=== PATIENT | male | born 1960 | race Caucasian/White ===

== ENCOUNTER 2016-10-26 11:00 | Outpatient (CLI) | payer BC ==
--- OUTSIDE RECORDS SUMMARY | 2016-10-25 06:01 | XMS REPORT | Continuity of Care Document ---
Author Author [facility] Organization [facility] Address Unknown Phone Unavailable Allergies Active Description Code Type Severity Reaction Onset Reported/Identified Relationship to Patient Clinical Status Yes No Known Drug Allergies [id number] Drug Allergy Unknown N/ A 04/15/2014 Medications Problems Date Dx Coded Attending Type Code Diagnosis Diagnosed By 04/18/2014 ROMELIA SAMANO MD Ot 272.0 PURE HYPERCHOLESTEROLEM 04/18/2014 ROMELIA SAMANO MD Ot 272.4 HYPERLIPIDEMIA NEC/NOS 04/18/2014 ROMELIA SAMANO MD Ot 401.9 HYPERTENSION NOS 04/18/2014 ROMELIA SAMANO MD Ot 410.71 AC MYOCARDIAL INFARCT,SUBENDO INFARCT,IN 04/18/2014 ROMELIA SAMANO MD Ot 414.01 CORONARY ATHEROSCLEROSIS OF [place] CORON 04/18/2014 ROMELIA SAMANO MD Ot 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 04/18/2014 ROMELIA SAMANO MD Ot V17.3 FAM HX-ISCHEM HEART DIS 01/07/2016 JOVANI WILBURN Ot E78.2 MIXED HYPERLIPIDEMIA 01/07/2016 JOVANI WILBURN Ot I10 ESSENTIAL (PRIMARY) HYPERTENSION 01/07/2016 JOVANI WILBURN Ot I25.10 ATHSCL HEART DISEASE OF [place] CORONARY 03/04/2016 JOVANI WILBURN Ot E78.2 MIXED HYPERLIPIDEMIA 03/04/2016 JOVANI WILBURN Ot I10 ESSENTIAL (PRIMARY) HYPERTENSION 03/04/2016 JOVANI WILBURN Ot I21.3 ST ELEVATION (STEMI) MYOCARDIAL INFARCTI 03/04/2016 JOVANI WILBURN Ot I25.10 ATHSCL HEART DISEASE OF [place] CORONARY 09/17/2016 JOVANI WILBURN Ot E78.2 MIXED HYPERLIPIDEMIA 09/17/2016 JOVANI WILBURN Ot I10 ESSENTIAL (PRIMARY) HYPERTENSION 09/17/2016 JOVANI WILBURN Ot I21.3 ST ELEVATION (STEMI) MYOCARDIAL INFARCTI 09/17/2016 JOVANI WILBURN Ot I25.10 ATHSCL HEART DISEASE OF [place] CORONARY 09/17/2016 JOVANI WILBURN Ot E78.2 MIXED HYPERLIPIDEMIA 09/17/2016 JOVANI WILBURN Ot I10 ESSENTIAL (PRIMARY) HYPERTENSION 09/17/2016 JOVANI WILBURN Ot I25.10 ATHSCL HEART DISEASE OF [place] CORONARY Procedures Code Description Performed By Performed On 37.22 LEFT HEART CARDIAC CATH 04/15/2014 38.91 ARTERIAL CATHETERIZATION 04/15/2014 88.53 LT HEART ANGIOCARDIOGRAM 04/15/2014 88.56 CORONAR ARTERIOGR-2 CATH 04/15/2014 Results Encounters ACCT No. Visit Date/Time Discharge Status Pt. Type Provider Facility Loc./Unit Complaint [id number] 04/15/2014 14:14:00 2013 17:51:00 DIS Inpatient JAZMYNE WESTFALL, ROMELIA Anand [facility] CSD IRR LAB RESULTS [id number] 02/16/2016 07:45:00 ACT Outpatient JOVANI REED [facility] CARD CA,HTN,HLP [id number] 12/22/2015 11:39:00 ACT Outpatient JOVANI REED [facility] CARD CAD,HTN,HLP
[~2016-10-26] VITALS: Ht 172.7 cm; Wt 88.9 kg
[~2016-10-26 11:00] MED LIST: ASP81CT PO; ATOR80TA PO; CARV3.12T PO; HYDR25TA4 PO; ISM30TCR PO; LISI1TAB10 PO; LISI20TA PO; Lisinopril PO; MULT-974 PO; OMEG-11 PO; SIMV40TA4 PO
[2016-10-26] MEDS ORDERED: AMLO5TAB2 PO (11:20)
[2016-10-26] MEDS ORDERED: LISI-552 PO (11:20)
[2016-10-26] MEDS ORDERED: CARV6.25 PO (11:20)
[2016-10-26] MEDS ORDERED: ATOR40TA70 PO (11:20)
== END 2016-10-26 13:13 ==
LOC: PREOP 11:00
PROVIDERS: ATTEND Surgery Pediatric Surgery
DX: Z01.818 Encounter for other preprocedural examination (principal); Z12.11 Encounter for screening for malignant neoplasm of colon

== ENCOUNTER 2016-10-27 08:58 | Day surgery (SDC) | payer BC ==
[~2016-10-27] VITALS: Ht 172.7 cm; Wt 88.9 kg
[~2016-10-27 08:58] MED LIST changes: +AMLO5TAB2 PO; +ATOR40TA70 PO; +CARV6.25 PO; +LISI-552 PO
[2016-10-27] MEDS ORDERED: NS IV 1000 ML 1,000 ML ONE (09:09)
[2016-10-27] MEDS ORDERED: LIDOCAINE JELLY 2% (XYLOCAINE) 5 ML TUBE MM PRN (09:15)
[2016-10-27] MEDS ORDERED: NALOXONE 0.4 MG/ML 1 ML (NARCAN) VIAL IVP PRN (09:15)
[2016-10-27] MEDS ORDERED: FLUMAZENIL (ROMAZICON) 0.1 MG/ML 5 ML VIAL INJ PRN (09:15)
[2016-10-27 09:28] VITALS: BP 167/98
[2016-10-27] MEDS ORDERED: NS IV 500 ML 500 ML IV PRN (09:30)
[2016-10-27] MEDS ORDERED: NS IV 1000 ML 1,000 ML IV SCH (09:30)
[2016-10-27] MEDS ORDERED: LIDOCAINE JELLY 2% (XYLOCAINE) 5 ML TUBE ONE (10:12)
[2016-10-27] MEDS ORDERED: MIDAZOLAM 2 MG/2 ML (VERSED) VIAL ONE ×5 (10:13)
[2016-10-27] MEDS ORDERED: fentaNYL INJECTION 100 MCG/2 ML AMP ONE ×2 (10:13)
--- NOTE | 2016-10-27 10:13 | Conscious Sedation/ASA ---
Conscious Sedation Pre-Proced Time Reviewed: 10:00 ASA Class: 2 Airway Mallampati Classification: (chitina appropriate class) I. II. III, IV Lungs Heart ASA score ASA 1: a normal healthy patient ASA 2: a patient with a mild systemic disease (mid diabetes, controlled hypertension, obesity ASA 3: a patient with a severe systemic disease that limits activity (angina , COPD, prior Myocardial infarction) ASA 4: a patient with an incapacitating disease that is a constant threat to life (CHF, renal failure) ASA 5: a moribund patient not expected to survive 24 hrs. (ruptured aneurysm) ASA 6: a declared brain patient whose organs are being harvested. For emergent operations, add the letter E after the classification Grade 2 Sedation Plan: Analgesia, Amnesia, Plan communicated to team members, Discussed options with patient/fam, Discussed risks with patient/fam Note The patient is an appropriate candidate to undergo the planned procedure, sedation, and anesthesia. The patient immediately re-assessed prior to indication. ANTONELLA PALACIOS MD Oct 27, 2016 10:13 am
--- NOTE | 2016-10-27 10:13 | Progress Note-Pre Operative ---
Pre-Operative Progress Note H&P Reviewed The H&P was reviewed, patient examined and no changes noted. Date H&P Reviewed: Oct 27, 2016 Time H&P Reviewed: 10:00 Pre-Operative Diagnosis: screening colonoscopy ANTONELLA PALACIOS MD Oct 27, 2016 10:13 am
[2016-10-27] MEDS ORDERED: morphine INJ 10 MG/ML 1ML (SYR OR VIAL) IV PRN (10:15)
[2016-10-27] MEDS: MIDAZOLAM 2 MG/2 ML (VERSED) VIAL IVP PRN ×5 (10:15→10:30)
[2016-10-27] MEDS ORDERED: HYDROcodone/APAP 5 MG/325 MG (LORTAB) TAB PO PRN (10:15)
[2016-10-27] MEDS ORDERED: ONDANSETRON 4 MG/2 ML (SDV) Z0FRAN IV PRN (10:15)
[2016-10-27] MEDS ORDERED: ACETAMINOPHEN 325 MG TABLET/CAPLET (TYLENOL) PO PRN (10:15)
[2016-10-27] MEDS: fentaNYL INJECTION 100 MCG/2 ML AMP IVP PRN ×4 (10:16→10:25)
--- NOTE | 2016-10-27 10:50 | Progress Note-Post Operative ---
Post-Operative Progess Note Pre-Operative Diagnosis screening colonoscopy Post-Operative Diagnosis chronic stage 1 ext and int hemorrhoids Post-Op Procedure Note Date of Procedure: Oct 27, 2016 Name of Procedure: colonoscopy Anesthesia Type CS Estimated blood loss (mL): ANTONELLA Calhoun MD Oct 27, 2016 10:49 am
--- NOTE | 2016-10-27 10:50 | Discharge Inst-Surgical ---
D/C Lap Instructions-PHILIP Follow Up 10 years Activity as tolerated High Fiber Diet 25g or more per day Avoid Alcohol, Caffeine, Spicy [place] and Acid foods. Drink 64 fluid oz or more of fluids per day. Symptoms to Report: Fever over 101 degree F, Nausea/Vomiting If any problems/questions: Contact your physician or go to Emergency Room ANTONELLA PALACIOS MD Oct 27, 2016 10:50 am
[2016-10-27 11:10] VITALS: BP 122/82
[2016-10-27 11:55] VITALS: BP 148/89
[2016-10-27 12:04] VITALS: BP 148/89
--- NOTE | 2016-10-27 12:44 | OPERATIVE REPORT ---
PROCEDURE PHYSICIAN: ANTONELLA WEINBERG DATE OF PROCEDURE: 10/27/2016 ATTENDING PRIMARY CARE PHYSICIAN: Dr. Lim. PREOPERATIVE DIAGNOSIS: Screening colonoscopy. POSTOPERATIVE DIAGNOSIS: Mild chronic stage I external and internal hemorrhoids. PROCEDURE: Colonoscopy. SURGEON: Dr. Weinberg. ANESTHESIA: Conscious sedation. ESTIMATED BLOOD LOSS: Minimal. FINDINGS: Mild chronic stage I external and internal hemorrhoids. The remainder of the rectum and colon were normal. There were no polyps identified. DISPOSITION: The patient tolerated the procedure well. Mr. Rush Ang is a 60-year-old male in need of a screening colonoscopy. He states that he has occasional episodes of constipation, however not severe. He does not report any issues with red blood per rectum or any dark tarry stools. He also does not report any family history of colon cancer. He has not had a colonoscopy up to this point in his life. PROCEDURE: The patient was brought to the endoscopy suite, laid in the left lateral decubitus position with the head slightly elevated. After adequate IV pain and sedative medications and conscious sedation anesthesia, a digital rectal examination was performed. Mild chronic stage I external and internal hemorrhoids were identified which were not actively edematous or inflamed and no bleeding. Normal sphincter tone was felt and there were no palpable masses. Prostate gland was palpable and appeared normal. The endoscope was then intubated into the anus and the rectum gently insufflated. The endoscope was then advanced through the valves of Reyes of the rectum with no polyps or any neoplasms identified. The endoscope was then advanced through the sigmoid colon where no diverticulosis identified. We then proceeded through the remainder of the descending, transverse, and ascending colon to the cecum. These segments were normal. There were no polyps or any neoplasms identified throughout the colon or rectum. The endoscope was then slowly withdrawn while taking a second look and suctioning of residual air with no additional findings. The patient tolerated the procedure well. We will have him continue with medical management with a high fiber diet with at least 30 grams of fiber per day to promote soft stools on a daily basis. He does not need another colonoscopy for another 10 years. Job ID: [id number] Dictated Date: 10/27/2016 10:46:27 Planer Off Bearer Date: 10/27/2016 12:39:58 / clifford
--- OUTSIDE RECORDS SUMMARY | 2016-10-31 04:43 | XMS REPORT | Continuity of Care Document ---
Author Author [facility] Organization [facility] Address Unknown Phone Unavailable Allergies Active Description Code Type Severity Reaction Onset Reported/Identified Relationship to Patient Clinical Status Yes No Known Drug Allergies [id number] Drug Allergy Unknown N/ A 10/26/2016 Medications Problems Date Dx Coded Attending Type Code Diagnosis Diagnosed By 04/18/2014 ROMELIA SAMANO MD Ot 272.0 PURE HYPERCHOLESTEROLEM 04/18/2014 ROMELIA SAMANO MD Ot 272.4 HYPERLIPIDEMIA NEC/NOS 04/18/2014 ROMELIA SAMANO MD Ot 401.9 HYPERTENSION NOS 04/18/2014 ROMELIA SAMANO MD Ot 410.71 AC MYOCARDIAL INFARCT,SUBENDO INFARCT,IN 04/18/2014 ROMELIA SAMANO MD Ot 414.01 CORONARY ATHEROSCLEROSIS OF [place] CORON 04/18/2014 ROMELIA SAMANO MD, Ot 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 04/18/2014 ROMELIA SAMANO MD Ot V17.3 FAM HX-ISCHEM HEART DIS 01/07/2016 JOVANI WILBURN Ot E78.2 MIXED HYPERLIPIDEMIA 01/07/2016 JOVANI WILBURN Ot I10 ESSENTIAL (PRIMARY) HYPERTENSION 01/07/2016 JOVANI WILBURN Ot I25.10 ATHSCL HEART DISEASE OF [place] CORONARY 03/04/2016 JOVANI WILBURN Ot E78.2 MIXED HYPERLIPIDEMIA 03/04/2016 JOVANI WILBURN Ot I10 ESSENTIAL (PRIMARY) HYPERTENSION 03/04/2016 JOVANI WILBURN Ot I21.3 ST ELEVATION (STEMI) MYOCARDIAL INFARCTI 03/04/2016 JOVANI WILBURN Ot I25.10 ATHSCL HEART DISEASE OF [place] CORONARY 09/17/2016 JOVANI WILBURN Ot E78.2 MIXED HYPERLIPIDEMIA 09/17/2016 JOVANI WILBURN Ot I10 ESSENTIAL (PRIMARY) HYPERTENSION 09/17/2016 JOVANI WILBURN Ot I21.3 ST ELEVATION (STEMI) MYOCARDIAL INFARCTI 09/17/2016 JOVANI WILBURN Ot I25.10 ATHSCL HEART DISEASE OF [place] CORONARY 09/17/2016 JOVANI WILBURN Ot E78.2 MIXED HYPERLIPIDEMIA 09/17/2016 JOVANI WILBURN Ot I10 ESSENTIAL (PRIMARY) HYPERTENSION 09/17/2016 JOVANI WILBURN Ot I25.10 ATHSCL HEART DISEASE OF [place] CORONARY 10/26/2016 ANTONELLA PALACIOS MD Ot Z01.818 ENCOUNTER FOR OTHER PREPROCEDURAL EXAMIN 10/26/2016 ANTONELLA PALACIOS MD Ot Z12.11 ENCOUNTER FOR SCREENING FOR MALIGNANT NE 10/26/2016 ANTONELLA PALACIOS MD Ot Z01.818 ENCOUNTER FOR OTHER PREPROCEDURAL EXAMIN 10/26/2016 ANTONELLA PALACIOS MD, Ot Z12.11 ENCOUNTER FOR SCREENING FOR MALIGNANT NE 10/26/2016 ANTONELLA PALACIOS MD Ot Z01.818 ENCOUNTER FOR OTHER PREPROCEDURAL EXAMIN 10/26/2016 ANTONELLA PALACIOS MD Ot Z12.11 ENCOUNTER FOR SCREENING FOR MALIGNANT NE Procedures Code Description Performed By Performed On 37.22 LEFT HEART CARDIAC CATH 04/15/2014 38.91 ARTERIAL CATHETERIZATION 04/15/2014 88.53 LT HEART ANGIOCARDIOGRAM 04/15/2014 88.56 CORONAR ARTERIOGR-2 CATH 04/15/2014 Results Encounters ACCT No. Visit Date/Time Discharge Status Pt. Type Provider Facility Loc./Unit Complaint [id number] 10/26/2016 11:00:00 2016 13:13:00 DIS Outpatient ANTONELLA PALACIOS MD [facility] PREOP SCREENING [id number] 04/15/2014 14:14:00 2013 17:51:00 DIS Inpatient ROMELIA SAMANO MD [facility] CSD IRR LAB RESULTS [id number] 10/27/2016 10:14:00 Document Registration [id number] 02/16/2016 07:45:00 ACT Outpatient JOVANI REED [facility] CARD CA,HTN,HLP [id number] 12/22/2015 11:39:00 ACT Outpatient JOVANI REED [facility] CARD CAD,HTN,HLP
== END 2016-10-27 12:05 | disposition home or self-care (01) ==
LOC: DELPENDDIS → ENDO 08:58
PROVIDERS: ATTEND Surgery Pediatric Surgery
DX: Z12.11 Encounter for screening for malignant neoplasm of colon (principal); K64.0 First degree hemorrhoids

== ENCOUNTER → 2017-03-02 | Outpatient (CLI) | payer BC | LOC: CARD 14:34 | PROVIDERS: ATTEND Physician Assistant | DX: I25.10 Atherosclerotic heart disease of native coronary artery without angina pectoris (principal); I10 Essential (primary) hypertension; E78.2 Mixed hyperlipidemia; Z82.49 Family history of ischemic heart disease and other diseases of the circulatory system | CPT/HCPCS: 93306 ==

== ENCOUNTER 2017-03-07 23:17 | Emergency (ER) | payer BC ==
[~2017-03-07] VITALS: Ht 172.7 cm; Wt 87.5 kg
[2017-03-07 23:59] LABS: BASOPHILS % (AUTO) 0 % (0-10); EOSINOPHILS # (AUTO) 0.1 10^3/uL (0.0-0.3); EOSINOPHILS % (AUTO) 0 % (0-10); LYMPHOCYTES # (AUTO) 1.1 X 10^3 (1.0-4.0); LYMPHOCYTES % (AUTO) 9 % (12-44); MEAN CORPUSCULAR HEMOGLOBIN 30 PG (25-34); MEAN CORPUSCULAR HGB CONC 34 G/DL (32-36); MEAN CORPUSCULAR VOLUME 88 FL (80-99); MEAN PLATELET VOLUME 10.4 FL (7.4-10.4); MONOCYTES # (AUTO) 0.4 X 10^3 (0.0-1.0); MONOCYTES % (AUTO) 3 % (0-12); NEUTROPHILS # (AUTO) 10.5 X 10^3 (1.8-7.8); NEUTROPHILS % (AUTO) 87 % (42-75); PLATELET COUNT 176 10^3/uL (130-400); RED BLOOD COUNT 5.28 10^6/uL (4.35-5.85); RED CELL DISTRIBUTION WIDTH 13.2 % (10.0-14.5); WHITE BLOOD COUNT 12.1 10^3/uL (4.3-11.0)
[2017-03-07] MEDS ORDERED: NS IV 1000 ML 1,000 ML IV ONE (23:59)
[2017-03-08] LABS: BILIRUBIN,URINE NEGATIVE (NEGATIVE); KETONES,URINE NEGATIVE (NEGATIVE); LEUKOCYTE ESTERASE ,URINE NEGATIVE (NEGATIVE); NITRITE,URINE NEGATIVE (NEGATIVE); PH,URINE 8 (5-9); PROTEIN,URINE NEGATIVE (NEGATIVE); UROBILINOGEN,URINE NORMAL (NORMAL)
[2017-03-08] MEDS ORDERED: ONDANSETRON 4 MG/2 ML (SDV) Z0FRAN IVP ONE
[2017-03-08] MEDS ORDERED: fentaNYL INJECTION 100 MCG/2 ML AMP IVP ONE
[2017-03-08 00:15] LABS: SQUAMOUS EPITHELIAL CELL,UR RARE /HPF
[2017-03-08 00:20] LABS: ALANINE AMINOTRANSFERASE 31 U/L (0-55); ALBUMIN 4.7 GM/DL (3.2-4.5); ANION GAP 9 MMOL/L (5-14); ASPARTATE AMINO TRANSFERASE 30 U/L (5-34); BILIRUBIN,TOTAL 1.8 MG/DL (0.1-1.0); BLOOD UREA NITROGEN 21 MG/DL (7-18); BUN/CREATININE RATIO 18; CALCIUM 9.6 MG/DL (8.5-10.1); CARBON DIOXIDE 28 MMOL/L (21-32); CHLORIDE 106 MMOL/L (98-107); CREATININE SERUM 1.18 MG/DL (0.60-1.30); GFR ESTIMATED > 60; GLUCOSE 141 MG/DL (70-105); LIPASE 28 U/L (8-78); POTASSIUM 3.9 MMOL/L (3.6-5.0); SODIUM 143 MMOL/L (135-145); TOTAL PROTEIN 7.7 GM/DL (6.4-8.2)
[2017-03-08] MEDS ORDERED: KETOROLAC 30 MG/ML VIAL IVP ONE (00:45)
[2017-03-08] MEDS ORDERED: RX-ONDANSETRON 4 MG ODT (ZOFRAN) PPK #4 SL STA (01:57)
--- NOTE | 2017-03-08 01:59 | ED Abdominal Pain ---
General Chief Complaint: Back Problems Stated Complaint: BACK PAIN,ABD PAIN,VOMITING Nursing Triage Note: C/O LOWER BACK PAIN RADIATING TO ABDOMEN, N/V X2HRS Sepsis Screen: No Definite Risk Source of Information: Patient Exam Limitations: No Limitations History of Present Illness Time Seen By Provider: 23:30 Initial Comments This 56-year-old gentleman presents to the emergency room with complaints of right flank and lower back pain that is radiating down to the right lower quadrant. Pain started around 20:30. He has remote history of a renal stone. He has associated vomiting. He denies any constipation or diarrhea. He is afebrile. Pain is waxing and waning. He denies any hematuria or dysuria. Pain is rated as 8/10. Allergies and Home Medications Allergies Coded Allergies: No Known Drug Allergies (Unverified , 10/26/16) Home Medications Amlodipine Besylate 5 Mg Tablet, 5 MG PO DAILY, (Reported) Aspirin 81 Mg Chew, 81 MG PO DAILY, #30 Prescribed by: AMILCAR COBURN on 04/18/14 1625 Atorvastatin Calcium 40 Mg Tablet, 40 MG PO HS, (Reported) Carvedilol 6.25 Mg Tablet, 6.25 MG PO BID, (Reported) Ciprofloxacin HCl 500 Mg Tablet, 500 MG PO BID, #20 Prescribed by: DYAN HARRIS on 03/08/17 0203 Hydrocodone/Acetaminophen 1 Each Tablet, 1-2 EACH PO Q4H PRN for PAIN, #20 Prescribed by: DYAN HARRIS on 03/08/17 0203 Lisinopril 20 Mg Tablet, 20 MG PO DAILY, (Reported) Multivitamin 1 Each Tablet, 1 TAB PO DAILY, (Reported) Howard-3S/Dha/Epa/Fish Oil 1 Each Capsule, 1,200 MG PO DAILY, (Reported) Ondansetron 4 Mg Tab.rapdis, 4 MG SL Q4H PRN for NAUSEA/VOMITING-1ST LINE, #10 Prescribed by: DYAN HARRIS on 03/08/17 0203 Review of Systems Constitutional: no symptoms reported EENTM: No Symptoms Reported Respiratory: No Symptoms Reported Cardiovascular: No Symptoms Reported Gastrointestinal: See HPI Genitourinary: See HPI Musculoskeletal: no symptoms reported Skin: no symptoms reported Psychiatric/Neurological: No Symptoms Reported Endocrine: No Symptoms Reported Past Qiavuuj-Aviwma-Wxiywu Hx Patient Social History Alcohol Use: Denies Use Recreational Drug Use: No Smoking Status: Never a Smoker Recent Foreign Travel: No Contact w/Someone Who Travel: No Recent Infectious Disease Expo: No Recent Hopitalizations: No Immunizations Up To Date Tetanus Booster (TDap): Unknown Seasonal Allergies Seasonal Allergies: Yes (MILD) Surgeries HX Surgeries: Yes (exploratory surgery removal of second intestines from ) Surgeries: Abdominal, Appendectomy, Coronary Stent Respiratory Hx Respiratory Disorders: No Cardiovascular Hx Cardiac Disorders: Yes (STENT-APR 2014) Cardiac Disorders: Coronary Artery Disease, Heart Attack, High Cholesterol, Hypertension Neurological Hx Neurological Disorders: No Reproductive System Hx Reproductive Disorders: No Sexually Transmitted Disease: No HIV/AIDS: No Genitourinary Hx Genitourinary Disorders: Yes Genitourinary Disorders: Kidney Stones Gastrointestinal Hx Gastrointestinal Disorders: Yes Gastrointestinal Disorders: Gastroesophageal Reflux Musculoskeletal Hx Musculoskeletal Disorders: No Endocrine Hx Endocrine Disorders: No HEENT HX ENT Disorders: Yes (GLASSES) Loss of Vision: Bilateral Hearing Impairment: Denies Cancer Hx Cancer: No Psychosocial Hx Psychiatric Problems: No Integumentary HX Skin/Integumentary Disorder: No Blood Transfusions Hx Blood Disorders: No Adverse Reaction to a Blood Tr: No Family Medical History Family Medial History: Cardiovascular disease 19 FATHER 19 MOTHER G8 BROTHER G8 SISTER Congenital heart disease 19 FATHER Kidney disease 19 FATHER Physical Exam Vital Signs VS - Last 72 Hours, by Label 03/07/17 03/08/17 23:34 02:23 Temp 96.5 97.2 Pulse 67 57 Resp 18 18 B/P (MAP) 143/101 Pulse Ox 98 99 O2 Delivery Room Air Room Air Capillary Refill : Less Than 3 Seconds General Appearance: WD/WN, moderate distress HEENT: PERRL/EOMI, normal ENT inspection, pharynx normal Neck: normal inspection Respiratory: lungs clear, normal breath sounds, no respiratory distress, no accessory muscle use Cardiovascular: regular rate, rhythm, no edema, no murmur Gastrointestinal: normal bowel sounds, soft, tenderness (mild central abdominal tenderness) Extremities: normal inspection, no pedal edema Neurologic/Psychiatric: programming development project manager II-XII nml as tested, no motor/sensory deficits, alert, normal mood/affect, oriented x 3 Skin: normal color, warm/dry Progress/Results/Core Measures Results/Orders Lab Results Laboratory Tests Test 03/07/17 23:45 Range/Units White Blood Count 12.1 H 4.3-11.0 10^3/uL Red Blood Count 5.28 4.35-5.85 10^6/uL Hemoglobin 15.6 13.3-17.7 G/DL Hematocrit 46 40-54 % Mean Corpuscular Volume 88 80-99 FL Mean Corpuscular Hemoglobin 30 25-34 PG Mean Corpuscular Hemoglobin Concent 34 32-36 G/DL Red Cell Distribution Width 13.2 10.0-14.5 % Platelet Count 176 130-400 10^3/uL Mean Platelet Volume 10.4 7.4-10.4 FL Neutrophils (%) (Auto) 87 H 42-75 % Lymphocytes (%) (Auto) 9 L 12-44 % Monocytes (%) (Auto) 3 0-12 % Eosinophils (%) (Auto) 0 0-10 % Basophils (%) (Auto) 0 0-10 % Neutrophils # (Auto) 10.5 H 1.8-7.8 X 10^3 Lymphocytes # (Auto) 1.1 1.0-4.0 X 10^3 Monocytes # (Auto) 0.4 0.0-1.0 X 10^3 Eosinophils # (Auto) 0.1 0.0-0.3 10^3/uL Basophils # (Auto) 0.0 0.0-0.1 10^3/uL Urine Color YELLOW Urine Clarity CLEAR Urine pH 8 5-9 Urine Specific [place] 1.010 L 1.016-1.022 Urine Protein NEGATIVE NEGATIVE Urine Glucose (UA) NEGATIVE NEGATIVE Urine Ketones NEGATIVE NEGATIVE Urine Nitrite NEGATIVE NEGATIVE Urine Bilirubin NEGATIVE NEGATIVE Urine Urobilinogen NORMAL NORMAL MG/DL Urine Leukocyte Esterase NEGATIVE NEGATIVE Urine RBC (Auto) 4+ H NEGATIVE Urine RBC 50-100 H /HPF Urine WBC NONE /HPF Urine Squamous Epithelial Cells RARE /HPF Urine Crystals NONE /LPF Urine Bacteria NEGATIVE /HPF Urine Casts NONE /LPF Urine Mucus NEGATIVE /LPF Urine Culture Indicated NO Sodium Level 143 135-145 MMOL/L Potassium Level 3.9 3.6-5.0 MMOL/L Chloride Level 106 98-107 MMOL/L Carbon Dioxide Level 28 21-32 MMOL/L Anion Gap 9 5-14 MMOL/L Blood Urea Nitrogen 21 H 7-18 MG/DL Creatinine 1.18 0.60-1.30 MG/DL Estimat Glomerular Filtration Rate > 60 BUN/Creatinine Ratio 18 Glucose Level 141 H 70-105 MG/DL Calcium Level 9.6 8.5-10.1 MG/DL Total Bilirubin 1.8 H 0.1-1.0 MG/DL Aspartate Amino Transf (AST/SGOT) 30 5-34 U/L Alanine Aminotransferase (ALT/SGPT) 31 0-55 U/L Alkaline Phosphatase 85 40-136 U/L Total Protein 7.7 6.4-8.2 GM/DL Albumin 4.7 H 3.2-4.5 GM/DL Lipase 28 8-78 U/L My Orders Orders - DYAN MOE MD Saline Lock/Iv-Start (03/07/17 23:30) Cbc With Automated Diff (03/07/17 23:30) Comprehensive Metabolic Panel (03/07/17 23:30) Ua Culture If Indicated (03/07/17 23:30) Lipase (03/07/17 23:30) Fentanyl Injection (Sublimaze Injection (03/08/17 00:00) Ondansetron Injection (Zofran Injectio (03/08/17 00:00) Ns Iv 1000 Ml (Sodium Chloride 0.9%) (03/07/17 23:59) Ct Abd/Pelvis Wo(Kidney Stone) (03/08/17 00:32) Ketorolac Injection (Toradol Injection) (03/08/17 00:45) Glycopyrrolate Injection (Robinul Inject (03/08/17 02:00) Rx-Ondansetron Po (Rx-Zofran Po) (03/08/17 01:57) Rx-Hydrocodone/Apap 5-325 Mg (Rx-Vicodin (03/08/17 02:00) Abdomen/Kub 1view (03/08/17 01:59) Medications Given in ED Vital Signs/I&O Vital Sign - Last 12Hours 03/07/17 03/08/17 23:34 02:23 Temp 96.5 97.2 Pulse 67 57 Resp 18 18 B/P (MAP) 143/101 Pulse Ox 98 99 O2 Delivery Room Air Room Air Blood Pressure Mean: 115 Progress Note : Progress Note Patient was initially treated with fentanyl, Zofran, and IV fluids. Urinalysis demonstrated red blood cells. Ureteral stone was suspected. Toradol was given for further pain management. CT confirmed a right ureteral stone with obstruction. A dose of Robinul was given prior to dismissal. Take-home packet of Zofran and hydrocodone were administered. Symptoms are well controlled at the time of dismissal. A urine strainer was provided. Diagnostic Imaging Diagonstic Imaging: CT Plain Films/CT/US/NM/MRI: abdomen, pelvis Comments CT abdomen and pelvis viewed by me and statrad report reviewed. There is a 4 mm obstructing stone in the proximal right ureter causing mild hydroureter, hydronephrosis, and small amount of perinephric fat stranding. There is also a 1 cm nonobstructing stone in the lower pole of the right kidney. There is a small fat-containing left inguinal hernia. Small hiatal hernia. Departure Impression Impression: Primary Impression: Right ureteral stone Additional Impressions: Nephrolithiasis Hydronephrosis Qualified Codes: N13.2 - Hydronephrosis with renal and ureteral calculous obstruction Nausea and vomiting Qualified Codes: R11.2 - Nausea with vomiting, unspecified Right sided abdominal pain Disposition: HOME, SELF-CARE Condition: Improved Departure-Patient Inst. Decision time for Depature: 01:50 Referrals: LETI LORENZANA MD (PCP/Family) Primary Care Physician BRITTANY OH MD Patient Instructions: Kidney Stones in Adults Add. Discharge Instructions: Drink plenty of clear liquids. Use your hydrocodone and Zofran as prescribed. Follow-up with Dr. Oh and/or your primary care provider this week. Return to the ER if symptoms worsen. Strain your urine and bring any stones collected to your follow-up appointment. All discharge instructions reviewed with patient and/or family. Voiced understanding. Scripts Ciprofloxacin HCl (Cipro) 500 Mg Tablet 500 MG PO BID, #20 TAB Prov: DYAN MOE MD 03/08/17 Ondansetron (Zofran Odt) 4 Mg Tab.rapdis 4 MG SL Q4H Y for NAUSEA/VOMITING-1ST LINE, #10 TAB Prov: DYAN MOE MD 03/08/17 Hydrocodone/Acetaminophen (Hydrocodon -Acetaminophen 5-325) 1 Each Tablet 1-2 EACH PO Q4H Y for PAIN, #20 TAB Prov: DYAN MOE MD 03/08/17 Work/School Note: Work Release Form Date Seen in the Emergency Department: Mar 08, 2017 Return to Work: Mar 09, 2017 Restrictions: No Restrictions DYAN MOE MD Mar 08, 2017 01:59
[2017-03-08] MEDS ORDERED: GLYCOPYRROLATE 0.2 MG/ML (ROBINUL) 2 ML VIAL IV ONE (02:00)
[2017-03-08] MEDS ORDERED: RX-HYDROCODONE/APAP 5/325 MG #4 TAB PK PO PRN (02:00)
[2017-03-08] MEDS ORDERED: CIPR-225 PO (02:03)
[2017-03-08] MEDS ORDERED: ONDA4TAB8 SL (02:03)
[2017-03-08] MEDS ORDERED: HYDR-3812 PO (02:03)
[2017-03-08 02:23] VITALS: BP 143/93
--- NOTE | 2017-03-08 06:59 | Diagnostic Imaging Report ---
Supine abdomen at 2:29 AM. INDICATION: Kidney stones. A single supine view of the abdomen was obtained. As noted on the CT abdomen/pelvis exam performed earlier today there is a roughly 1-cm nonobstructive calculus within the inferior pole of the right kidney. The small obstructive calculus in the midportion of right kidney seen previously is also again evident and no different. There is no sign of nephrolithiasis on the left. No other abnormality is identified. There is some gas in both the large and small bowel in a nonspecific fashion. There is no sign of a bowel obstruction. There is no mass or organomegaly appreciated. The osseous structures are intact. IMPRESSION: 1. The calculi within the right kidney and the right ureter seen previously are again visualized. 2. There is no acute abnormality identified otherwise. Dictated by: Dictated on workstation # [id number]
--- NOTE | 2017-03-08 08:44 | Diagnostic Imaging Report ---
PROCEDURE: CT urinary tract, rule out kidney stone. TECHNIQUE: Multiple contiguous axial images were obtained through the abdomen and pelvis without the use of intravenous contrast. INDICATION: Abdominal pain. There are no prior studies available for comparison. There is a 4-mm calculus in the midportion of the right ureter (image 82 of 161.) The ureter proximal to the calculus and the right renal pelvis are dilated consistent with partial obstruction of the right collecting system. There is also perinephric stranding about the right kidney. In addition, there is a 1-cm nonobstructive calculus in the inferior pole of the right kidney. There is no sign of nephrolithiasis or urolithiasis on the left. The urinary bladder is grossly unremarkable. No other acute abnormality of the abdomen or pelvis is noted. The appendix is not abnormally thickened. The prostate gland is prominent but not enlarged. The liver, spleen, pancreas, adrenals, gallbladder, aorta, and inferior vena cava are unremarkable for an acute abnormality. The stomach is not well distended and consequently difficult to assess. There does appear to be a small 3.5-cm hiatal hernia. The lung bases are generally clear. The heart is borderline enlarged. The bone windows show no sign of a fracture or of a destructive lesion; however, there are bilateral pars defects at L5, and there is approximately 1 cm of anterior translation of L5 with respect to S1. There is also narrowing of the disc space at this level. IMPRESSION: 1. There is partial obstruction of the right collecting system due to a 4-mm calculus in the midportion of the right ureter. There is also a 1 CM nonobstructive calculus in the inferior pole of the right kidney. 2. There is no acute abnormality in the abdomen or pelvis noted otherwise. 3. There is a small hiatal hernia. 4. There is a grade 1 spondylolisthesis of L5 with respect to S1 and bilateral pars defects at L5. There is also narrowing of the disc space at this level. Dictated by: Dictated on workstation # [id number]
== END 2017-03-08 02:22 | disposition home or self-care (01) ==
LOC: EDUNIT# 23:17 → ER 23:19
DX: N13.2 Hydronephrosis with renal and ureteral calculous obstruction (principal); I25.10 Atherosclerotic heart disease of native coronary artery without angina pectoris; I10 Essential (primary) hypertension; I25.2 Old myocardial infarction; E78.00 Pure hypercholesterolemia, unspecified; K21.9 Gastro-esophageal reflux disease without esophagitis; Z82.49 Family history of ischemic heart disease and other diseases of the circulatory system; Z87.442 Personal history of urinary calculi; Z79.82 Long term (current) use of aspirin; Z90.49 Acquired absence of other specified parts of digestive tract; Z95.5 Presence of coronary angioplasty implant and graft
CPT/HCPCS: 36415; 74000; 74176; 80053; 81000; 83690; 85025; 96374; 96375

== ENCOUNTER 2017-03-27 11:00 | Outpatient (RCR) | payer BC ==
[~2017-03-27 11:00] MED LIST changes: +CIPR-225 PO; +HYDR-3812 PO; +ONDA4TAB8 SL
[2017-03-29 16:29] LABS: KIDNEY STONE COMPOSITION SEE FOOTNOTE; KIDNEY STONE WEIGHT 19 MG; STONE NUMBER 1
[2017-03-29 16:30] LABS: KIDNEY STONE DESCRIPTION SEE FOOTNOTE
== END 2017-03-28 07:32 | disposition home or self-care (01) ==
LOC: LAB 11:00 → EDSTATUS 03-28 07:30 → LAB 03-28 07:32
PROVIDERS: ATTEND Urology
DX: N20.0 Calculus of kidney (principal)
CPT/HCPCS: 36415; 88300

== ENCOUNTER → 2019-01-08 | Outpatient (CLI) | payer BC ==
[~2019-01-08] MED LIST changes: +ACHD5005 PO; -AMLO5TAB2 PO; +AMLO5TAB9 PO; -HYDR-3812 PO
== END ==
LOC: CARD 13:12
PROVIDERS: ATTEND Internal Medicine Cardiovascular Disease
DX: I25.10 Atherosclerotic heart disease of native coronary artery without angina pectoris (principal); R06.02 Shortness of breath; R07.9 Chest pain, unspecified; E78.2 Mixed hyperlipidemia; I07.1 Rheumatic tricuspid insufficiency
CPT/HCPCS: 93306

== ENCOUNTER → 2019-05-07 | Outpatient (CLI) | payer BC ==
[~2019-05-07] VITALS: Ht 173 cm; Wt 86.0 kg
[~2019-05-07] MED LIST changes: +CATHETER FLUSH 10 ML SYR IV PRN
[2019-05-07 09:16] VITALS: BP 132/95
[2019-05-07 09:26] VITALS: BP 189/70
[2019-05-07 09:27] VITALS: BP 186/93
--- NOTE | 2019-05-07 13:52 | STRESS TEST ---
DATE OF SERVICE: 05/07/2019 EXERCISE MYOVIEW STRESS TEST REPORT REFERRING PHYSICIAN: Dr. Lim. Baseline heart rate is 68, baseline blood pressure 137/101. Baseline EKG is sinus rhythm with no ischemic changes. In summary, the patient was injected with 10.88 mCi of technetium-99 Myoview and the resting images were obtained. Then, the patient started exercising with a baseline heart rate, blood pressure and EKG mentioned above. Early in exercise, the patient started to have frequent PVCs and ventricular bigeminy persisted throughout test. He was able to exercise for 7 minutes 20 seconds on standard [facility] protocol. With peak exercise level, EKG was showing frequent PVCs, nonspecific T-wave abnormality. During recovery, heart rate and blood pressure returned to baseline. EKG returned to baseline. The resting and stress images were reviewed and compared in the short axis, horizontal long axis, and vertical long axis views. Review of the images showed fixed defect involving the whole inferior wall, inferoseptum and inferolateral wall. SSS is 15. SDS is 0. TID value 1.03. On the gated images, the left ventricle appeared to be dilated with hypokinesia involving the whole inferior wall, calculated ejection fraction 44%. IN CONCLUSION: 1. Fair exercise tolerance, a total of 8 minutes 30 seconds on standard [facility] protocol, a total of 10.3 METS achieving 87% of maximum expected heart rate. 2. Exercise induced frequent PVCs and ventricular bigeminy. 3. 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 4. Dilated left ventricle with hypokinesia at the inferior wall, but still having some preserved contractility at the inferior wall. Calculated ejection fraction 44%. Job ID: [id number] DocumentID: [id number] Dictated Date: 05/07/2019 12:01:28 Financial Operations Clerk Date: 05/07/2019 13:52:07 Dictated By: ROMELIA SAMANO MD
== END ==
LOC: CARD 07:28
PROVIDERS: ATTEND Internal Medicine Cardiovascular Disease
DX: I25.10 Atherosclerotic heart disease of native coronary artery without angina pectoris (principal); E78.2 Mixed hyperlipidemia; I10 Essential (primary) hypertension
CPT/HCPCS: 78452; 93017

== ENCOUNTER → 2020-09-04 | Outpatient (CLI) | payer BC ==
[~2020-09-04] MED LIST changes: +AMLO-250 PO; -AMLO5TAB9 PO; -CATHETER FLUSH 10 ML SYR IV PRN
--- NOTE | 2020-09-04 15:01 | Diagnostic Imaging Report ---
Indication: Right ureteral stone. Time of exam: 1:36 PM Correlation is made with prior radiograph from 03/08/2017. Calculus that was previously located in the lower pole of the right kidney is now more medially located, overlying the right transverse process of L3. This likely within a ureteral location. This measures 9 mm in size. No other definite urinary tract calculi are seen. The bowel gas pattern is unremarkable. Impression: 9 mm calculus at the level of L3, likely within the proximal right ureter. Dictated by: Dictated on workstation # [id number]
== END ==
LOC: RAD 13:09
PROVIDERS: ATTEND Urology
DX: N20.1 Calculus of ureter (principal)
CPT/HCPCS: 74018

== ENCOUNTER 2020-09-05 12:07 | Day surgery (SDC) | payer BC ==
[~2020-09-05] VITALS: Ht 172.7 cm; Wt 84.9 kg
[2020-09-05] VITALS (11 sets, daily range): BP systolic 90–134; BP diastolic 56–94
[2020-09-05] MEDS ORDERED: WATER (STERILE) FOR INJECTION 10 ML ONE (12:20)
[2020-09-05] MEDS ORDERED: cefTRIAXone 1,000 MG IV (ROCEPHIN) VIAL ONE (12:20)
--- NOTE | 2020-09-05 12:30 | Progress Note-Pre Operative ---
Pre-Operative Progress Note H&P Reviewed The H&P was reviewed, patient examined and no changes noted. Date Seen by Provider: Sep 05, 2020 Time Seen by Provider: 12:30 Date H&P Reviewed: Sep 05, 2020 Time H&P Reviewed: 12:30 Pre-Operative Diagnosis: RT PROXIMAL URETERAL STONE BRITTANY OH MD Sep 05, 2020 12:30
--- NOTE | 2020-09-05 12:32 | Progress Note-Post Operative ---
Post-Operative Progess Note Surgeon (s)/Transporter Radiology (s) Surgeon BRITTANY OH MD Transporter Radiology: NONE Pre-Operative Diagnosis RT PROXIMAL URETERAL STONE Post-Operative Diagnosis SAME Procedure & Operative Findings Date of Procedure 09/05/20 Procedure Performed/Findings CYSTOSCOPY WITH RT URETERAL STONE MANIPULATION AND INSERTION OF STENT Anesthesia Type GENERAL Estimated Blood Loss Estimated blood loss (mL): NONE Specimens/Packing Specimens Removed NONE Packing: NONE BRITTANY OH MD Sep 05, 2020 12:32
--- NOTE | 2020-09-05 12:34 | Discharge Inst-Urology ---
Discharge Inst-Urology Reconcile Patient Problems Problems Reviewed?: Yes Final Diagnosis RT PROXIMAL URETERAL STONE Patient Instructions/Follow Up Plan/Assessment/Instructions Please make appointment to been seen in office Friday 09/15, KUB prior to it. Stay off ASA Increase oral fluids for 48 hours and then as needed. Diet and Activity as tolerated. If questions or concerns contact your physician Or seek help at emergency department. BRITTANY OH MD Sep 05, 2020 12:34
[2020-09-05] MEDS: LACTATED RINGERS 1,000 ML IV PRN ×2 (12:40→15:10)
--- NOTE | 2020-09-05 12:44 | Diagnostic Imaging Report ---
HISTORY: Right-sided stone. COMPARISON: 09/04/2020. TECHNIQUE: Frontal view of the abdomen. FINDINGS: Redemonstrated is a 9 mm calculus along the expected course of the proximal right ureter, at the level of the superior endplate of L3. This is unchanged since the prior exam. No other calculi are seen. There are phleboliths in the pelvis. No acute osseous abnormality is seen. IMPRESSION: 1. Unchanged 9 mm calculus in the region of the proximal right ureter. Dictated by: Dictated on workstation # [id number]
[2020-09-05] MEDS ORDERED: SEVOFLURANE (ULTANE) 15 ML INHAL SOLN ONE ×2 (13:24→15:30)
[2020-09-05] MEDS ORDERED: proPOfol 200 MG/20 ML (DIPRIVAN) VIAL IV ONE (13:24)
[2020-09-05] MEDS ORDERED: MIDAZOLAM 2 MG/2 ML (VERSED) VIAL ONE (13:24)
[2020-09-05] MEDS ORDERED: fentaNYL INJECTION 100 MCG/2 ML AMP ONE (13:24)
[2020-09-05] MEDS ORDERED: LIDOCAINE PF 2% 5 ML (XYLOCAINE) VIAL ONE (13:24)
[2020-09-05] MEDS ORDERED: ONDANSETRON 4 MG/2 ML (SDV) Z0FRAN ONE (13:24)
[2020-09-05] MEDS ORDERED: cefTRIAXone FOR IV USE 1,000 MG in WATER (STERILE) FOR INJECTION 10 ML IV ONE (13:30)
[2020-09-05] MEDS ORDERED: ROCURONIUM 10 MG/ML 5 ML SYRINGE IV ONE (15:14)
[2020-09-05] MEDS ORDERED: MEPERIDINE (DEMEROL) INJ 50 MG/ML IVP ONE (15:30)
[2020-09-05] MEDS ORDERED: morphine INJ 10 MG/ML 1ML (SYR OR VIAL) IVP ONE (15:30)
[2020-09-05] MEDS ORDERED: ONDANSETRON 4 MG/2 ML (SDV) Z0FRAN IVP PRN (15:30)
[2020-09-05] MEDS ORDERED: fentaNYL INJECTION 100 MCG/2 ML AMP IVP ONE (15:30)
--- NOTE | 2020-09-05 15:30 | Anesthesia-General Post-Op ---
General Patient Condition Mental Status/LOC: Same as Preop Cardiovascular: Satisfactory Nausea/Vomiting: Absent Respiratory: Satisfactory Pain: Controlled Complications: Absent Post Op Complications Complications None Follow Up Care/Instructions Patient Instructions None needed. Anesthesia/Patient Condition Patient Condition Patient is doing well, no complaints, stable vital signs, no apparent adverse anesthesia problems. No complications reported per nursing. BARTOLO MAGAÑA CRNA Sep 05, 2020 15:30
--- NOTE | 2020-09-05 20:37 | OPERATIVE REPORT ---
DATE OF SERVICE: 09/05/2020 PREOPERATIVE DIAGNOSIS: Right proximal ureteral stone. POSTOPERATIVE DIAGNOSIS: Right proximal ureteral stone. OPERATION PERFORMED: Cystoscopy with right ureteral stone manipulation and insertion of right double-J stent. SURGEON: Johnny Oh MD ANESTHESIA: General. COMPLICATIONS: None. DESCRIPTION OF PROCEDURE: Under satisfactory general anesthesia, the patient lie in a lithotomy position, genitalia were prepped and draped in the usual sterile fashion. Cystoscope was introduced under vision. The anterior urethra was normal. The prostate was not really obstructing. Bladder neck was open. Bladder was normal except for sluggish efflux on the right side. Using the foroblique lens, I passed a 6-Haitian ureteral catheter to the level of the stone and injected some saline, which pushed the stone back into the kidney lower pole basil. I removed the ureteral catheter. I passed a 6-Haitian 26 cm stent and with some manipulation, I was able to go all the way up to the right renal pelvis, guided fluoroscopically. I removed the guidewire and the stent was seen draining nicely proximally fluoroscopically and distally endoscopically. Bladder was evacuated. The cystoscope was removed. The patient tolerated the procedure and anesthesia well and was sent to recovery room in stable condition. PLAN: ESWL on Tuesday, the with possible removal of the stent depending on the results of the ESWL. The plan was fully explained to the patient preoperatively and to his postoperatively. Job ID: [id number] DocumentID: [id number] Dictated Date: 09/05/2020 15:23:28 Car Oiler Date: 09/05/2020 20:35:57 Dictated By: JOHNNY OH MD
== END 2020-09-05 17:35 | disposition home or self-care (01) ==
LOC: SDC 12:07
PROVIDERS: ATTEND Urology
DX: N20.1 Calculus of ureter (principal); I25.10 Atherosclerotic heart disease of native coronary artery without angina pectoris; K21.9 Gastro-esophageal reflux disease without esophagitis; E78.00 Pure hypercholesterolemia, unspecified; N40.0 Benign prostatic hyperplasia without lower urinary tract symptoms; Z79.899 Other long term (current) drug therapy; Z95.5 Presence of coronary angioplasty implant and graft; Z20.828 Contact with and (suspected) exposure to other viral communicable diseases
CPT/HCPCS: 52330; 52332; 74018; 76000; 87081; C2625; U0002; 87635

== ENCOUNTER 2020-09-10 12:45 | Outpatient (RCR) | payer BC ==
[~2020-09-10] VITALS: Ht 172.7 cm; Wt 84.9 kg
== END 2020-09-10 13:33 | disposition home or self-care (01) ==
LOC: PREOP 12:45
PROVIDERS: ATTEND Urology
DX: Z01.812 Encounter for preprocedural laboratory examination (principal); N20.2 Calculus of kidney with calculus of ureter

== ENCOUNTER → 2020-09-15 | Outpatient (CLI) | payer BC ==
[~2020-09-15] MED LIST changes: +ASPI-999 PO; +NITR-65 PO; +TMSL.4C PO; +TRM50T PO
--- NOTE | 2020-09-15 14:10 | Diagnostic Imaging Report ---
INDICATION: Right nephrolithiasis KUB 2:05 PM There is 1 cm right mid ureteral calculus. There is a double-J ureteral stent that has been introduced alongside the calculus and extends from the renal pelvis to the urinary bladder. IMPRESSION: Right ureteral calculus. Interval placement of a right double-J ureteral stent. Dictated by: Dictated on workstation # [id number]
== END ==
LOC: RAD 13:44
PROVIDERS: ATTEND Urology
DX: N20.1 Calculus of ureter (principal); Z96.0 Presence of urogenital implants
CPT/HCPCS: 74018

== ENCOUNTER 2020-09-16 06:10 | Day surgery (SDC) | payer BC ==
[~2020-09-16] VITALS: Ht 172.7 cm; Wt 84.9 kg
[2020-09-16] VITALS (8 sets, daily range): BP systolic 103–126; BP diastolic 65–84
[~2020-09-16 06:10] MED LIST changes: -ASPI-999 PO; -LISI-552 PO; +LISI20TA26 PO; -NITR-65 PO; -TMSL.4C PO; -TRM50T PO
[2020-09-16] MEDS ORDERED: cefTRIAXone FOR IV USE 1,000 MG in WATER (STERILE) FOR INJECTION 10 ML IV ONE (06:15)
[2020-09-16] MEDS ORDERED: CATHETER FLUSH 10 ML SYR IV PRN (06:30)
[2020-09-16] MEDS ORDERED: LIDOCAINE PF 2% 5 ML (XYLOCAINE) VIAL ONE (06:44)
[2020-09-16] MEDS ORDERED: proPOfol 200 MG/20 ML (DIPRIVAN) VIAL IV ONE (06:44)
[2020-09-16] MEDS ORDERED: ONDANSETRON 4 MG/2 ML (SDV) Z0FRAN ONE (06:44)
[2020-09-16] MEDS ORDERED: MIDAZOLAM 2 MG/2 ML (VERSED) VIAL ONE (06:45)
[2020-09-16] MEDS ORDERED: SEVOFLURANE (ULTANE) 15 ML INHAL SOLN ONE (06:45)
[2020-09-16] MEDS ORDERED: fentaNYL INJECTION 100 MCG/2 ML AMP ONE (06:45)
[2020-09-16] MEDS: LACTATED RINGERS 1,000 ML IV PRN ×2 (06:56→07:40)
[2020-09-16] MEDS ORDERED: ASPI-999 PO (07:01)
--- NOTE | 2020-09-16 07:05 | Progress Note-Pre Operative ---
Pre-Operative Progress Note H&P Reviewed The H&P was reviewed, patient examined and no changes noted. Date Seen by Provider: Sep 16, 2020 Time Seen by Provider: 07:05 Date H&P Reviewed: Sep 16, 2020 Time H&P Reviewed: 07:05 Pre-Operative Diagnosis: RT PROXIMAL URETERAL STONE BRITTANY OH MD Sep 16, 2020 07:05
--- NOTE | 2020-09-16 07:36 | Discharge Inst-Urology ---
Discharge Inst-Urology Reconcile Patient Problems Problems Reviewed?: Yes Final Diagnosis RT URETERAL STONE Patient Instructions/Follow Up Plan/Assessment/Instructions Please make appointment to been seen in office Friday 09/29, KUB prior to it. KUB on way home Stay off ASA Post ESWL instructions Increase oral fluids. Diet and Activity as tolerated. If questions or concerns contact your physician Or seek help at emergency department. BRITTANY OH MD Sep 16, 2020 07:36
--- NOTE | 2020-09-16 07:37 | Progress Note-Post Operative ---
Post-Operative Progess Note Surgeon (s)/Instrumentation Designer (s) Surgeon BRITTANY OH MD Instrumentation Designer: NONE Pre-Operative Diagnosis RT PROXIMAL URETERAL STONE Post-Operative Diagnosis SAME Procedure & Operative Findings Date of Procedure 09/16/20 Procedure Performed/Findings RT ESWL Anesthesia Type GENERAL Estimated Blood Loss Estimated blood loss (mL): NONE Specimens/Packing Specimens Removed NONE Packing: NONE BRITTANY OH MD Sep 16, 2020 07:37
--- NOTE | 2020-09-16 08:25 | Diagnostic Imaging Report ---
INDICATION: Status post ESWL. COMPARISON: 09/15/2020 FINDINGS: Single frontal radiographic view of the abdomen was obtained and demonstrates indwelling right-sided double-J ureteral stent in stable position. 1 cm calculus is again identified and projects lateral to the right transverse process of L2 potentially within the renal pelvis or calyx, as it does not project over the indwelling ureteral stent. Small bowel loops are nondistended. No unexpected radiopaque foreign bodies are seen. IMPRESSION: 1. Redemonstration of the right-sided renal calculus and indwelling double-J ureteral stent. Dictated by: Dictated on workstation # [id number]
[2020-09-16] MEDS ORDERED: TMSL.4C PO (08:51)
[2020-09-16] MEDS ORDERED: TRM50T PO (08:51)
[2020-09-16] MEDS ORDERED: NITR-65 PO (08:51)
--- NOTE | 2020-09-16 09:00 | Anesthesia-General Post-Op ---
General Patient Condition Mental Status/LOC: Same as Preop Cardiovascular: Satisfactory Nausea/Vomiting: Absent Respiratory: Satisfactory Pain: Controlled Complications: Absent Post Op Complications Complications None Follow Up Care/Instructions Patient Instructions None needed. Anesthesia/Patient Condition Patient Condition Patient is doing well, no complaints, stable vital signs, no apparent adverse anesthesia problems. No complications reported per nursing. OZ GARCÍA CRNA Sep 16, 2020 09:00
--- NOTE | 2020-09-16 09:14 | OPERATIVE REPORT ---
DATE OF SERVICE: 09/16/2020 PREOPERATIVE DIAGNOSIS: Right proximal ureteral stone. POSTOPERATIVE DIAGNOSIS: Right proximal ureteral stone. OPERATION PERFORMED: Right ESWL. SURGEON: Johnny Oh MD. ANESTHESIA: General. COMPLICATIONS: None. DESCRIPTION OF PROCEDURE: Under satisfactory general anesthesia, the patient in supine position on the ESWL table, the right proximal ureteral stone was localized. Shocks were delivered at kV of 6. A total of 3000 shocks were delivered. The stone was a good size and seems to be kind of hard. I decided not to remove the stent for the possibility of a second ESWL in two weeks when the machine comes back and further amount of fragments he will be passing and this was explained to him and his preoperatively. The patient received 40 mg of Lasix and 30 mg of Toradol IV at the end of the procedure. He tolerated the procedure and anesthesia well and was sent to recovery room in a stable condition. Job ID: [id number] DocumentID: [id number] Dictated Date: 09/16/2020 07:48:00 Coagulation Operator Date: 09/16/2020 09:14:31 Dictated By: JOHNNY OH MD
--- NOTE | 2020-09-16 10:12 | Diagnostic Imaging Report ---
INDICATION: Status post ESWL. COMPARISON: Earlier same day. FINDINGS: Single frontal radiograph view of the abdomen was obtained and demonstrates interval fragmentation of previously described 1 cm calculus. Multiple smaller calculi now project over the inferior pole of the right kidney. Indwelling right-sided double J ureteral stent is again identified and remains in stable position. No new unexpected radiopaque foreign bodies are seen. Small bowel loops are nondistended. IMPRESSION: 1. Interval fragmentation of right-sided renal calculus as described above. Dictated by: Dictated on workstation # [id number]
== END 2020-09-16 10:05 | disposition home or self-care (01) ==
LOC: SDC 06:10
PROVIDERS: ATTEND Urology
DX: N20.1 Calculus of ureter (principal); I10 Essential (primary) hypertension; I25.10 Atherosclerotic heart disease of native coronary artery without angina pectoris; K21.9 Gastro-esophageal reflux disease without esophagitis; E78.00 Pure hypercholesterolemia, unspecified; Z79.899 Other long term (current) drug therapy
CPT/HCPCS: 74018; 87081

== ENCOUNTER 2020-09-23 07:45 | Outpatient (RCR) | payer BC ==
[~2020-09-23 07:45] MED LIST changes: +ASPI-999 PO; +NITR-65 PO; +TMSL.4C PO; +TRM50T PO
[2020-09-30] MEDS ORDERED: TMSL.4C PO (09:35)
[2020-09-30] MEDS ORDERED: NITR-65 PO (09:35)
[2020-09-30] MEDS ORDERED: TRM50T PO (09:35)
== END 2020-09-29 15:01 | disposition home or self-care (01) ==
LOC: PREOP 07:45
PROVIDERS: ATTEND Urology
DX: Z01.818 Encounter for other preprocedural examination (principal)

== ENCOUNTER → 2020-09-29 | Outpatient (CLI) | payer BC ==
--- NOTE | 2020-09-29 18:25 | Diagnostic Imaging Report ---
INDICATION: Nephrolithiasis. COMPARISON: 09/16/2020. FINDINGS: A 7 mm stone has migrated from the region of the lower pole of the kidney along the proximal to middle one third of the nephroureteral stent. Two smaller stones are also likely present more distally in the mid right ureter. Multiple smaller stones in the lower pole of the right kidney persist. Nephroureteral stent appears in stable position. IMPRESSION: Multiple right renal stones have migrated into the proximal ureter along the course of the stent. Dictated by: Dictated on workstation # [id number]
== END ==
LOC: RAD 12:46
PROVIDERS: ATTEND Urology
DX: N20.2 Calculus of kidney with calculus of ureter (principal)
CPT/HCPCS: 74018

== ENCOUNTER 2020-09-30 06:39 | Day surgery (SDC) | payer BC ==
[2020-09-30] VITALS (8 sets, daily range): BP systolic 82–118; BP diastolic 59–95
[~2020-09-30] VITALS: Ht 172.7 cm; Wt 84.9 kg
[2020-09-30] MEDS ORDERED: cefTRIAXone FOR IV USE 1,000 MG in WATER (STERILE) FOR INJECTION 10 ML IV ONE (06:45)
--- NOTE | 2020-09-30 07:06 | Progress Note-Pre Operative ---
Pre-Operative Progress Note H&P Reviewed The H&P was reviewed, patient examined and no changes noted. Date Seen by Provider: Sep 30, 2020 Time Seen by Provider: 07:05 Date H&P Reviewed: Sep 30, 2020 Time H&P Reviewed: 07:05 Pre-Operative Diagnosis: RT PROXIMAL URETERAL AND RENAL STONES BRITTANY OH MD Sep 30, 2020 07:06
[2020-09-30] MEDS ORDERED: LIDOCAINE PF 2% 5 ML (XYLOCAINE) VIAL ONE (07:23)
[2020-09-30] MEDS ORDERED: MIDAZOLAM 2 MG/2 ML (VERSED) VIAL ONE (07:23)
[2020-09-30] MEDS ORDERED: proPOfol 200 MG/20 ML (DIPRIVAN) VIAL IV ONE (07:23)
[2020-09-30] MEDS ORDERED: ONDANSETRON 4 MG/2 ML (SDV) Z0FRAN ONE (07:23)
[2020-09-30] MEDS ORDERED: fentaNYL INJECTION 100 MCG/2 ML AMP ONE (07:24)
[2020-09-30] MEDS: LACTATED RINGERS 1,000 ML IV PRN ×2 (07:29→09:07)
--- NOTE | 2020-09-30 08:08 | Progress Note-Post Operative ---
Post-Operative Progess Note Surgeon (s)/Key Account Manager (s) Surgeon BRITTANY OH MD Key Account Manager: NONE Pre-Operative Diagnosis RT PROXIMAL URETERAL AND RENAL STONES Post-Operative Diagnosis SAME Procedure & Operative Findings Date of Procedure 09/30/20 Procedure Performed/Findings RT ESWL Anesthesia Type GENERAL Estimated Blood Loss Estimated blood loss (mL): NONE Specimens/Packing Specimens Removed NONE TO PATH Packing: NONE BRITTANY OH MD Sep 30, 2020 08:08
--- NOTE | 2020-09-30 08:10 | Discharge Inst-Urology ---
Discharge Inst-Urology Reconcile Patient Problems Problems Reviewed?: Yes Final Diagnosis RT PROXIMAL AND RENAL STONES Patient Instructions/Follow Up Plan/Assessment/Instructions Please make appointment to been seen in office 3/4, KUB prior to it. KUB on way home Post ESWL instructions Increase oral fluids for 48 hours and then as needed. Diet and Activity as tolerated. If questions or concerns contact your physician Or seek help at emergency department. BRITTANY OH MD Sep 30, 2020 08:10
--- NOTE | 2020-09-30 08:12 | Diagnostic Imaging Report ---
Indication: Nephrolithiasis KUB 7:01 AM There are 3 calculi projecting over the lower pole of the right kidney. There is a 8 millimeter calculus projecting over the right proximal ureter. There is right double-J ureteral stent. IMPRESSION: Right nephrolithiasis and right ureterolithiasis with a double-J ureteral stent on the right. No significant change compared to the previous day. Dictated by: Dictated on workstation # [id number]
[2020-09-30] MEDS ORDERED: GLYCOPYRROLATE 0.2 MG/ML (ROBINUL) 2 ML VIAL ONE (08:20)
[2020-09-30] MEDS ORDERED: PHENYLEPHRINE 100 MCG/ML 10 ML (ANESTHESIA) SYR ONE (08:20)
[2020-09-30] MEDS ORDERED: KETOROLAC 30 MG/ML VIAL ONE (08:31)
[2020-09-30] MEDS ORDERED: FUROSEMIDE 40 MG/4 ML INJ (LASIX) ONE (08:31)
[2020-09-30] MEDS ORDERED: SEVOFLURANE (ULTANE) 15 ML INHAL SOLN ONE (08:44)
[2020-09-30] MEDS ORDERED: ONDANSETRON 4 MG/2 ML (SDV) Z0FRAN IVP PRN (08:45)
[2020-09-30] MEDS ORDERED: morphine INJ 10 MG/ML 1ML (SYR OR VIAL) IVP ONE (08:45)
[2020-09-30] MEDS ORDERED: MEPERIDINE (DEMEROL) INJ 50 MG/ML IVP ONE (08:45)
[2020-09-30] MEDS ORDERED: TMSL.4C PO (09:35)
[2020-09-30] MEDS ORDERED: TRM50T PO (09:35)
[2020-09-30] MEDS ORDERED: NITR-65 PO (09:35)
--- NOTE | 2020-09-30 10:35 | Anesthesia-General Post-Op ---
General Patient Condition Mental Status/LOC: Same as Preop Cardiovascular: Satisfactory Nausea/Vomiting: Absent Respiratory: Satisfactory Pain: Controlled Complications: Absent Post Op Complications Complications None Follow Up Care/Instructions Patient Instructions None needed. Anesthesia/Patient Condition Patient Condition Patient is doing well, no complaints, stable vital signs, no apparent adverse anesthesia problems. No complications reported per nursing. YELITZA TEJEDA CRNA Sep 30, 2020 10:35
--- NOTE | 2020-09-30 10:50 | Diagnostic Imaging Report ---
INDICATION: Post lithotripsy with right ureteral stone. Comparison with image 701 a.m.. FINDINGS: Double-J stent remains in good position on the right. The calcification measuring 8 mm overlying the stent in the proximal ureter is unchanged in position. There continues to be several calcifications within the mid and lower pole calyces as well. IMPRESSION: No appreciable change in appearance of the stent or calculi when compared with previous exam. Dictated by: Dictated on workstation # [id number]
--- NOTE | 2020-09-30 12:56 | OPERATIVE REPORT ---
DATE OF SERVICE: 09/30/2020 PREOPERATIVE DIAGNOSES: Right proximal ureteral and renal stones. POSTOPERATIVE DIAGNOSES: Right proximal ureteral and renal stones. OPERATION PERFORMED: Right ESWL. SURGEON: Johnny Oh MD ANESTHESIA: General. COMPLICATIONS: None. DESCRIPTION OF PROCEDURE: Under satisfactory general anesthesia, the patient in supine position on the ESWL table, the right proximal stone was localized. Shocks were delivered at kV of 6, a total of 3000 shocks seemed to have fragmented the stone. I discussed with the about leaving the stent as a security, so that of we do not have results expected from this third ESWL, we will refer him to either [facility] or [facility] in [place] for a flexible ureteral lithotripsy with laser, which can take care of the stone, remove the stent and also go to the kidney and fragment the stones . She was agreeable with that and we will discuss with the patient after surgery. So at the end of the procedure, we gave the patient Lasix 40 mg and Toradol IV 30 mg. He tolerated the procedure and anesthesia well and was sent to recovery room in stable condition. PLAN: We will see him back next week and manage according to the KUB at that time. Job ID: [id number] DocumentID: [id number] Dictated Date: 09/30/2020 08:28:25 Production Graphic Designer Date: 09/30/2020 12:55:56 Dictated By: JOHNNY OH MD
== END 2020-09-30 11:00 | disposition home or self-care (01) ==
LOC: SDC 06:39
PROVIDERS: ATTEND Urology
DX: N20.2 Calculus of kidney with calculus of ureter (principal); I10 Essential (primary) hypertension; I25.10 Atherosclerotic heart disease of native coronary artery without angina pectoris; K21.9 Gastro-esophageal reflux disease without esophagitis; E78.00 Pure hypercholesterolemia, unspecified; Z79.899 Other long term (current) drug therapy
CPT/HCPCS: 74018; 87081

== ENCOUNTER → 2020-10-09 | Outpatient (CLI) | payer BC ==
[~2020-10-09] MED LIST changes: +PHEN-640 PO
--- NOTE | 2020-10-09 16:49 | Diagnostic Imaging Report ---
INDICATION: Renal stones COMPARISON: 09/30/2020 FINDINGS: Single view of the abdomen demonstrates double-J stent in stable position. Several calcifications are seen in the inferior pole of the right kidney. There is a calcification likely within the ureter along the stent measuring 4 to 5 mm. There is a 2nd questionable calcification along the stent in the mid right ureter at the level of the L3 transverse process. IMPRESSION: Stable position of the double-J stent with nephro and ureteral calculi. Dictated by: Dictated on workstation # [id number]
== END ==
LOC: RAD 15:47
PROVIDERS: ATTEND Urology
DX: N13.2 Hydronephrosis with renal and ureteral calculous obstruction (principal); Z96.0 Presence of urogenital implants
CPT/HCPCS: 74018

== ENCOUNTER 2020-10-10 08:37 | Outpatient (RCR) | payer BC ==
[~2020-10-10] VITALS: Ht 173 cm; Wt 85.0 kg
[~2020-10-10 08:37] MED LIST changes: -PHEN-640 PO
== END 2020-10-10 12:03 | disposition home or self-care (01) ==
LOC: PREOP 08:37
PROVIDERS: ATTEND Urology
DX: Z01.818 Encounter for other preprocedural examination (principal)

== ENCOUNTER 2020-10-14 07:03 | Day surgery (SDC) | payer BC ==
[2020-10-14] VITALS (11 sets, daily range): BP systolic 114–135; BP diastolic 71–99
[~2020-10-14] VITALS: Ht 173 cm; Wt 85.0 kg
[2020-10-14] MEDS ORDERED: cefTRIAXone FOR IV USE 1,000 MG in WATER (STERILE) FOR INJECTION 10 ML IV ONE (07:30)
[2020-10-14] MEDS: LACTATED RINGERS 1,000 ML IV PRN ×2 (07:42→10:17)
--- NOTE | 2020-10-14 08:01 | Progress Note-Pre Operative ---
Pre-Operative Progress Note H&P Reviewed The H&P was reviewed, patient examined and no changes noted. Date Seen by Provider: Oct 14, 2020 Time Seen by Provider: 08:01 Date H&P Reviewed: Oct 14, 2020 Time H&P Reviewed: 08:01 Pre-Operative Diagnosis: RT PROXIMAL URETERAL AND RENAL STONES BRITTANY OH MD Oct 14, 2020 08:01
--- NOTE | 2020-10-14 08:26 | Diagnostic Imaging Report ---
EXAMINATION: Abdomen 1 view HISTORY: Preoperative evaluation for ESWL COMPARISON: None available. FINDINGS: There is moderate amount of gas and stool throughout the colon. Nonobstructive bowel gas pattern. A right ureteral stent is present. There is a 0.7 cm stone overlying the expected location of the proximal right ureter near the ureteral stent. There are additional radiopaque likely renal calculi measuring up to 0.9 cm overlying the right kidney. The osseous structures are intact. IMPRESSION: 1. A 0.7 cm right proximal/mid ureteral calculus along the right ureter stent. 2. Additional right renal calculi measuring up to 0.9 cm. Dictated by: Dictated on workstation # [id number]
--- NOTE | 2020-10-14 09:10 | Progress Note-Post Operative ---
Post-Operative Progess Note Surgeon (s)/Sports Psychologist (s) Surgeon BRITTANY OH MD Sports Psychologist: NONE Pre-Operative Diagnosis RT PROXIMAL URETERAL AND RENAL STONES Post-Operative Diagnosis SAME Procedure & Operative Findings Date of Procedure 10/14/20 Procedure Performed/Findings CYSTOSCOPY, RT URETEROSCOPY WITH STENT REMOVAL, RT URETERAL CATHETERIZATION, RETROGRADE UROGRAM AND RT ESWL Anesthesia Type GENERAL Estimated Blood Loss Estimated blood loss (mL): NONE Specimens/Packing Specimens Removed NONE TO PATH Packing: NONE BRITTANY OH MD Oct 14, 2020 09:10
--- NOTE | 2020-10-14 09:12 | Discharge Inst-Urology ---
Discharge Inst-Urology Reconcile Patient Problems Problems Reviewed?: Yes Final Diagnosis RT URETERAL AND RENAL STONES Patient Instructions/Follow Up Plan/Assessment/Instructions Please make appointment to been seen in office Saturday 10/07, KUB prior to it. KUB on way home Post ESWL instructions Increase oral fluids for 48 hours and then as needed. Diet and Activity as tolerated. If questions or concerns contact your physician Or seek help at emergency department. BRITTANY OH MD Oct 14, 2020 09:11
[2020-10-14] MEDS ORDERED: fentaNYL INJECTION 100 MCG/2 ML AMP ONE (09:13)
[2020-10-14] MEDS ORDERED: proPOfol 200 MG/20 ML (DIPRIVAN) VIAL IV ONE (09:13)
[2020-10-14] MEDS ORDERED: SEVOFLURANE (ULTANE) 15 ML INHAL SOLN ONE (09:13)
[2020-10-14] MEDS ORDERED: LIDOCAINE PF 2% 5 ML (XYLOCAINE) VIAL ONE (09:13)
[2020-10-14] MEDS ORDERED: NEOSTIGMINE 3 MG/3 ML VIAL ONE (09:13)
[2020-10-14] MEDS ORDERED: ROCURONIUM 10 MG/ML 5 ML SYRINGE IV ONE (09:13)
[2020-10-14] MEDS ORDERED: MIDAZOLAM 2 MG/2 ML (VERSED) VIAL ONE (09:13)
[2020-10-14] MEDS ORDERED: ONDANSETRON 4 MG/2 ML (SDV) Z0FRAN ONE (09:13)
[2020-10-14] MEDS ORDERED: GLYCOPYRROLATE 0.2 MG/ML (ROBINUL) 2 ML VIAL ONE ×2 (09:13→10:39)
[2020-10-14] MEDS ORDERED: PHENYLEPHRINE 100 MCG/ML 10 ML (ANESTHESIA) SYR ONE (11:08)
[2020-10-14] MEDS ORDERED: ONDANSETRON 4 MG/2 ML (SDV) Z0FRAN IVP PRN (11:30)
[2020-10-14] MEDS ORDERED: morphine INJ 10 MG/ML 1ML (SYR OR VIAL) IVP ONE (11:30)
[2020-10-14] MEDS ORDERED: CIPR-225 PO (11:41)
[2020-10-14] MEDS ORDERED: TMSL.4C PO (11:41)
[2020-10-14] MEDS ORDERED: ACHD5005 PO (11:41)
[2020-10-14] MEDS ORDERED: PHEN-640 PO (11:41)
--- NOTE | 2020-10-14 13:56 | Anesthesia-General Post-Op ---
General Patient Condition Mental Status/LOC: Same as Preop Cardiovascular: Satisfactory Nausea/Vomiting: Absent Respiratory: Satisfactory Pain: Controlled Complications: Absent Post Op Complications Complications None Follow Up Care/Instructions Patient Instructions None needed. Anesthesia/Patient Condition Patient Condition Patient was seen after the procedure and he was doing well, no complaints, stable vital signs, no apparent adverse anesthesia problems. LUPILLO TUBBS DO Oct 14, 2020 13:56
--- NOTE | 2020-10-14 14:38 | Diagnostic Imaging Report ---
INDICATION: Post lithotripsy. COMPARISON: Imaging from the same date. TECHNIQUE: Single radiograph of the abdomen dated October 14, 2020. FINDINGS: Interval removal of previously noted right ureteral stent. Multiple calcifications overlying the inferior pole of the right renal shadow are again identified. These calcifications have increased since the prior examination. Previously noted calcification overlying the proximal right ureter which was adjacent to the right ureteral stent is no longer visualized and is now likely overlying the inferior pole of the right kidney. 3 mm calcification overlying the inferior pole of the left kidney is suggested. Phleboliths within the pelvis bilaterally. Nonobstructive bowel gas pattern. No free air. No acute osseous abnormality. IMPRESSION: Interval removal of right ureteral stent. Previously noted proximal right-sided ureterolith is not seen along the course of the right ureter and is likely now overlying the inferior pole of the right renal shadow with multiple additional renal calculi present in this location. Probable tiny left renal calculus. Dictated by: Dictated on workstation # [id number]
--- NOTE | 2020-10-14 15:33 | OPERATIVE REPORT ---
DATE OF SERVICE: 10/14/2020 PREOPERATIVE DIAGNOSES: 1. Right proximal ureteral stone. 2. Right renal stones. POSTOPERATIVE DIAGNOSES: 1. Right proximal ureteral stone. 2. Right renal stones. 3. Migrated right stent. OPERATION PERFORMED: Cystoscopy, right ureteroscopy with stent removal, right ureteral catheterization. Manipulation of stent. Injection of contrast and right ESWL with retrograde urogram. SURGEON: Johnny Oh MD. ANESTHESIA: General. COMPLICATIONS: None. DESCRIPTION OF PROCEDURE: Under satisfactory general anesthesia, the patient in lithotomy position, genitalia were prepped and draped in the usual sterile fashion. Cystoscope was introduced under vision. Anterior urethra was normal. Prostate revealed mild enlargement of the lateral lobe with median bar. The bladder was entered. Ureteric orifices were normal and the end of the right ureteral stent was not visualized and coming from the orifice. It had migrated up the ureter, so I dilated the right ureteral orifice intramural portion to accommodate the 6.9 Filipino semi-rigid ureteroscope. I visualized the distal end of the stent and after a couple three attempts, I was able to grasp it with a 3-prong catheter grasper and removed it in toto. I went back with ureteroscope, went up the ureter, but I could not manipulate the curve of the distal ureter, probably secondary to the enlarged prostate, so I removed the ureteroscope and reinserted the cystoscope, passed a ureteral catheter all the way up and I was able to flush the stone back into the kidney, injected contrast to confirm that, left the catheter there, emptied the bladder, removed the cystoscope, moved the patient to the ESWL room, supine on the ESWL table. We first localized the lower calyceal stones and delivered shocks at kV of 6, a total of 1500 shocks and then moved to the mid calyceal stones and delivered another 1000 for a total of 2500. The contrast was leaving the kidney nicely and we could see it flowing in the ureter and the patient received 30 mg of Toradol and 40 mg of Lasix at the end of the procedure. He tolerated the procedure and anesthesia well and was sent to recovery room in stable condition. Job ID: [id number] DocumentID: [id number] Dictated Date: 10/14/2020 11:06:40 [place] Technician Date: 10/14/2020 15:33:06 Dictated By: JOHNNY OH MD
== END 2020-10-14 13:25 | disposition home or self-care (01) ==
LOC: SDC 07:03
PROVIDERS: ATTEND Urology
DX: N20.2 Calculus of kidney with calculus of ureter (principal); T83.123A Displacement of other urinary stents, initial encounter; I10 Essential (primary) hypertension; I25.10 Atherosclerotic heart disease of native coronary artery without angina pectoris; K21.9 Gastro-esophageal reflux disease without esophagitis; Z79.899 Other long term (current) drug therapy; Z95.5 Presence of coronary angioplasty implant and graft
CPT/HCPCS: 74018; 76000; 87081

== ENCOUNTER → 2020-10-27 | Outpatient (CLI) | payer BC ==
[~2020-10-27] MED LIST changes: +PHEN-640 PO
--- NOTE | 2020-10-27 14:46 | Diagnostic Imaging Report ---
INDICATION: Status post right-sided ESWL. COMPARISON: 10/14/2020 FINDINGS: Two supine radiographic views of the abdomen were obtained and demonstrate interval migration of 6 and 7 mm calculi over the right psoas muscle, presumably into the proximal right ureter. Multiple fragmented calculi are also noted projecting over the inferior pole of the right kidney. No unexpected radiopaque foreign bodies are seen. Small bowel loops are nondistended. There is no large collection of free intraperitoneal air. Included portions of the lung bases are clear. IMPRESSION: 1. Interval fragmentation of right renal calculi with migration of stones into the proximal right ureter. Dictated by: Dictated on workstation # [id number]
== END ==
LOC: RAD 13:45
PROVIDERS: ATTEND Urology
DX: N20.2 Calculus of kidney with calculus of ureter (principal)
CPT/HCPCS: 74018

== ENCOUNTER → 2020-11-06 | Outpatient (CLI) | payer BC ==
--- NOTE | 2020-11-06 15:29 | Diagnostic Imaging Report ---
INDICATION: Status post ESWL. COMPARISON: 10/27/2020 FINDINGS: Single supine radiographic view of the abdomen was obtained and demonstrates interval migration of additional right renal calculi into the right mid to proximal ureter. Additionally, previously described 6 and 7 mm left ureteral calculi remain in stable position. Additional right renal calculi also persists. No unexpected radiopaque foreign bodies are seen. Small bowel loops are nondistended. Osseous structures show no acute abnormality. IMPRESSION: 1. Previously described left ureteral calculi remain in place. 2. Interval migration of additional right renal calculi into the right ureter. Dictated by: Dictated on workstation # [id number]
== END ==
LOC: RAD 13:58
PROVIDERS: ATTEND Urology
DX: N20.2 Calculus of kidney with calculus of ureter (principal); Z98.890 Other specified postprocedural states
CPT/HCPCS: 74018

== ENCOUNTER → 2020-12-02 | Outpatient (CLI) | payer BC ==
--- NOTE | 2020-12-02 17:55 | Diagnostic Imaging Report ---
INDICATION: Ureteral calculi. Comparison with 11/06/2020. FINDINGS: The comminuted calculi within the mid right ureter and lower pole calyx of the right kidney have virtually all transited. There remains one tiny calcification overlying the lower pole calyx. There are phleboliths noted in the pelvis bilaterally. Left kidney appears normal. IMPRESSION: Virtually all of the calculi within the kidney and right ureter have passed. Dictated by: Dictated on workstation # [id number]
== END ==
LOC: RAD 14:18
PROVIDERS: ATTEND Urology
DX: N20.2 Calculus of kidney with calculus of ureter (principal)
CPT/HCPCS: 74018

== ENCOUNTER → 2021-12-30 | Outpatient (CLI) | payer BC | LOC: CARD 15:00 | PROVIDERS: ATTEND Physician Assistant | DX: I10 Essential (primary) hypertension (principal); I25.10 Atherosclerotic heart disease of native coronary artery without angina pectoris | CPT/HCPCS: 93306 ==

== ENCOUNTER → 2023-03-23 | Outpatient (CLI) | payer BC ==
[~2023-03-23] VITALS: Ht 172 cm; Wt 86.0 kg
[~2023-03-23] MED LIST changes: +CATHETER FLUSH 10 ML SYR IVP PRN
[2023-03-23 08:57] VITALS: BP 141/91
--- NOTE | 2023-03-23 15:31 | Cardiology Stress Test Report ---
Stress Test Report Date of Procedure/Referring: Date of Procedure: Mar 23, 2023 PCP No,Local Physician Admitting Physician Admitting Physician: Attending Physician: Romelia Mcdonough MD Baseline Heart Rate: 50 Baseline Blood Pressure: Blood Pressure Systolic: 141 Blood Pressure Diastolic: 91 Vital Signs Date Time Temp Pulse Resp B/P (MAP) Pulse Ox O2 Delivery O2 Flow Rate FiO2 03/23/23 08:57 66 141/91 (108) 99 Baseline Vital Signs Vital Signs Date Time Temp Pulse Resp B/P (MAP) Pulse Ox O2 Delivery O2 Flow Rate FiO2 03/23/23 08:57 66 141/91 (108) 99 Baseline EKG: Baseline EKG: NSR Summary: After explaining the procedure and details to the patient, he signed the consent and was brought to the stress nuclear laboratory. Patient exercised on standard [place] protocol, EKG, heart rate and blood pressure were monitored continuously, resting and stress doses of radio tracer were injected, imaging was acquired and reviewed in the short axis, horizontal long axis and vertical long axis views Patient was able to exercise for a total of 9 minutes on [facility] protocol, METs 10.5 Maximum heart rate 137 Maximum blood pressure 174/93 Stress EKG, Minimal nondiagnostic changes Recovery EKG, Return to baseline TID: 0.97 SSS: 15 SDS: 1 EF: 41 Conclusion: Good exercise tolerance for a total of 9 minutes on standard [facility]h protocol, 10.5-minute's achieving 86% of maximal expected heart rate Nondiagnostic EKG changes with exercise return to baseline during recovery Appropriate heart rate and blood pressure response to exercise return to baseline during recovery 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
== END ==
LOC: CARD 07:25
PROVIDERS: ATTEND Internal Medicine Cardiovascular Disease
DX: I10 Essential (primary) hypertension (principal); I25.10 Atherosclerotic heart disease of native coronary artery without angina pectoris
CPT/HCPCS: 78452; 93017; A9502